=== PATIENT | male | born 1975 | race American Indian/Alaskan Native ===

== ENCOUNTER 2018-07-14 13:55 | Emergency (ER) | payer SELFPAY ==
[2018-07-14 14:10] VITALS: BP 137/79
--- NOTE | 2018-07-14 14:11 | Emergency Department Report ---
Chief Complaint: Back Pain/Injury Stated Complaint: LOWER BACK PAIN/DIZZINESS Time Seen by Provider: 07/14/18 14:09 - HPI History of Present Illness: This is a 43 y.o. male that presents with chills and headache for 4 days. PMH HIV. Patient states he has been off medication since May. - ROS Review of Systems: chills, headache, and acute on chronic back pain. - Exam Vital Signs: Vital Signs 07/14/18 14:08 Temperature 99.3 F Pulse Rate 82 Respiratory 18 Rate Blood Pressure 137/79 O2 Sat by Pulse 99 Oximetry MSE screening note: Focused history and physical exam performed. Due to findings the following was ordered: labs Fast track for further evaluation. ED Disposition for MSE Condition: Stable
[2018-07-14 14:56] LABS: Hematocrit 35.8 % (35.5-45.6); Hemoglobin 11.7 gm/dl (11.8-15.2); Mean Corpuscular HGB Conc 33 % (32-34); Mean Corpuscular Volume 79 fl (84-94); Platelet Count 263 K/mm3 (140-440); Red Blood Count 4.53 M/mm3 (3.65-5.03); Red Cell Distribution Width 13.9 % (13.2-15.2)
[2018-07-14 15:08] LABS: Alanine Aminotransferase 18 units/L (7-56); Albumin 3.8 g/dL (3.9-5); BUN/Creatinine Ratio 7; Blood Urea Nitrogen 6 mg/dL (9-20); Calcium 9.1 mg/dL (8.4-10.2); Hemolysis Index 12
[2018-07-14] MEDS ORDERED: TORADOL IV ONE (15:42)
[2018-07-14] MEDS ORDERED: NACL 0.9% 1000 ML 1,000 ML IV ONE (15:42)
[2018-07-14 16:00] LABS: Basophils % (Manual) 0 % (0.0-1.8); Eosinophils % (Manual) 0 % (0.0-4.3); RBC Morphology Normal; Total Cells Counted 100
[2018-07-14 16:31] LABS: Bilirubin,Urine NEG (Negative); Blood,Urine NEG (Negative); Color,Urine Yellow (Yellow); Mucus,Urine FEW /HPF; Protein,Urine <15 mg/dL mg/dL (Negative); Urobilinogen,Urine < 2.0 mg/dL (<2.0); WBC,Urine < 1.0 /HPF (0.0-6.0)
--- NOTE | 2018-07-14 16:41 | Emergency Department Report ---
ED Back Pain/Injury HPI - General Chief Complaint: Back Pain/Injury Stated Complaint: LOWER BACK PAIN/DIZZINESS Time Seen by Provider: 07/14/18 14:09 Source: patient Limitations: No Limitations - History of Present Illness Initial Comments: This is a 43-year-old male nontoxic, well nourished in appearance, no acute signs of distress presents to the ED with c/o of acute on chronic lower back pain and dizziness. Patient stated that the past 2 days he was moving and developed this pain. Patient states has history of sciatica nerve pain which is similar symptoms as today. Patient states that pain radiates through to his left lower extremity. Patient denies any trauma. Denies any bladder or bowel instability. Patient denies any urinary symptoms. Patient denies any sycnope. Denies any fever, chills, nausea, vomiting, headache, stiff neck, chest pain or shortness of breath. Patient denies any numbness or tingling. Denies any allergies. MD Complaint: back pain -: days(s) Similar Symptoms Previously: Yes Radiation: none Severity: mild Severity scale (0 -10): 3 Consistency: intermittent Improves With: immobilization, sitting upright Worsens With: movement, walking Context: while lifting, turning/twisting Associated Symptoms: denies other symptoms. denies: confusion, weakness, chest pain, numbness, difficulty walking, cough, difficulty urinating, diaphoresis, incontinence, fever/chills, constipation, headaches, abdominal pain, loss of appetite, malaise, nausea/vomiting, rash, seizure, shortness of breath, syncope - Related Data Previous Rx's Medication Instructions Recorded Last Taken Type Ibuprofen [Motrin] 800 mg PO Q8H #30 tablet 06/28/14 Unknown Rx methOCARBAMOL [Robaxin] 500 mg PO BID #30 tab 06/28/14 Unknown Rx traMADol [Ultram 50 MG tab] 50 mg PO Q6HR PRN #20 tablet 06/28/14 Unknown Rx Cyclobenzaprine [Flexeril] 10 mg PO QHS PRN #10 tablet 07/14/18 Unknown Rx Ibuprofen [Motrin] 600 mg PO Q8H PRN #20 tablet 07/14/18 Unknown Rx Allergies Allergy/AdvReac Type Severity Reaction Status Date / Time No Known Allergies Allergy Unverified 06/28/14 16:49 ED Review of Systems ROS: Stated complaint: LOWER BACK PAIN/DIZZINESS Other details as noted in HPI Constitutional: denies: chills, fever Eyes: denies: eye pain, eye discharge, vision change ENT: denies: ear pain, throat pain Respiratory: denies: cough, shortness of breath, wheezing Cardiovascular: denies: chest pain, palpitations Endocrine: no symptoms reported Gastrointestinal: denies: abdominal pain, nausea, vomiting, diarrhea Genitourinary: denies: urgency, dysuria Musculoskeletal: back pain. denies: joint swelling, arthralgia Skin: denies: rash, lesions Neurological: denies: headache, weakness, paresthesias Psychiatric: denies: anxiety, depression Hematological/Lymphatic: denies: easy bleeding, easy bruising ED Past Medical Hx - Past Medical History Previous Medical History?: Yes Additional medical history: HIV+ - Surgical History Past Surgical History?: No - Social History Smoking Status: Unknown if ever smoked Substance Use Type: None - Medications Home Medications: Home Medications Medication Instructions Recorded Confirmed Last Taken Type Ibuprofen [Motrin] 800 mg PO Q8H #30 tablet 06/28/14 Unknown Rx methOCARBAMOL [Robaxin] 500 mg PO BID #30 tab 06/28/14 Unknown Rx traMADol [Ultram 50 MG tab] 50 mg PO Q6HR PRN #20 tablet 06/28/14 Unknown Rx Cyclobenzaprine [Flexeril] 10 mg PO QHS PRN #10 tablet 07/14/18 Unknown Rx Ibuprofen [Motrin] 600 mg PO Q8H PRN #20 tablet 07/14/18 Unknown Rx ED Physical Exam - General Limitations: No Limitations General appearance: alert, in no apparent distress - Head Head exam: Present: atraumatic, normocephalic - Eye Eye exam: Present: normal appearance, PERRL, EOMI - Neck Neck exam: Present: normal inspection, full ROM. Absent: tenderness, meningismus, lymphadenopathy - Respiratory Respiratory exam: Present: normal lung sounds bilaterally. Absent: respiratory distress, wheezes, rales, rhonchi, stridor, chest wall tenderness, accessory muscle use, decreased breath sounds, prolonged expiratory - Cardiovascular Cardiovascular Exam: Present: regular rate, normal rhythm, normal heart sounds. Absent: bradycardia, tachycardia, irregular rhythm, systolic murmur, diastolic murmur, rubs, gallop - GI/Abdominal GI/Abdominal exam: Present: soft, normal bowel sounds. Absent: distended, tenderness, guarding, rebound, rigid, diminished bowel sounds - Rectal Rectal exam: Present: deferred - Extremities Exam Extremities exam: Present: normal inspection, full ROM - Back Exam Back exam: Present: normal inspection, full ROM, paraspinal tenderness (lumbar paraspinal). Absent: tenderness, CVA tenderness (R), CVA tenderness (L), muscle spasm, vertebral tenderness, rash noted - Expanded Back Exam Expanded Back exam: Absent: saddle anesthesia Back exam: Negative Straight Leg Raising: Left, Right - Neurological Exam Neurological exam: Present: alert, oriented X3, normal gait - Expanded Neurological Exam Expanded Patient oriented to: Present: person, place, time Cranial nerves: EOM's Intact: Normal, Gag Reflex: Normal, Facial Sensation: Normal Upper motor neuron: Pronator Drift: Normal, Sensory Extinction: Normal Sensory exam: Upper Extremity Light Touch: Normal, Upper Extremity Pin Prick: Normal, Upper Extremity Temperature: Normal, Lower Extremity Light Touch: Normal, Lower Extremity Pin Prick: Normal, Lower Extremity Temperature: Normal Motor strength exam: RUE: 5, LUE: 5, RLE: 5, LLE: 5 Best Eye Response (Alejandro): (4) open spontaneously Best Motor Response (Alejandro): (6) obeys commands Best Verbal Response (Alejandro): (5) oriented Alejandro Total: 15 - Psychiatric Psychiatric exam: Present: normal affect, normal mood - Skin Skin exam: Present: warm, dry, intact, normal color. Absent: rash ED Course Vital Signs 07/14/18 07/14/18 14:08 16:09 Temperature 99.3 F Pulse Rate 82 Respiratory 18 18 Rate Blood Pressure 137/79 O2 Sat by Pulse 99 Oximetry - Reevaluation(s) Reevaluation #1: 07/14/18 16:42 Patient is speaking in full sentences with no signs of distress noted. ED Medical Decision Making - Lab Data Result diagrams: 07/14/18 14:40 07/14/18 14:40 - Medical Decision Making This is a 43-year-old male that presents with low back strain and dizziness. Patient is stable was examined by me. There is no spinal tenderness. There is no cauda equina syndrome during examination. Labs and UA are unremarkable. No bladder or bowel instability. Patient received Toradol 30 mg IM with 1L normal saline in the ED which stated that his symptoms has resolved and subsided. Patient stated that dizziness has subsided. Patient is discharged with muscle relaxant and Motrin. Patient was instructed not to operate any machinery while taking muscle relaxant as they cause her drowsiness. Patient was referred to Follow-up with a primary care doctor in 3-5 days or if symptoms worsen and con tinue return to emergency room as soon as possible. At time of discharge, the patient does not seem toxic or ill in appearance. No acute signs of distress noted. Patient agrees to discharge treatment plan of care. No further questions noted by the patient. This chart is dictated with using [employer] Critical care attestation.: If time is entered above; I have spent that time in minutes in the direct care of this critically ill patient, excluding procedure time. ED Disposition Clinical Impression: Dizziness Low back strain Qualifiers: Encounter type: initial encounter Qualified Code(s): S39.012A - Strain of muscle, fascia and tendon of lower back, initial encounter Disposition: TO HOME OR SELFCARE Is pt being admited?: No Does the pt Need Aspirin: No Condition: Stable Instructions: Dizziness (ED), Low Back Strain (ED), Cyclobenzaprine (By mouth) Additional Instructions: Follow-up with your primary care doctor in 3-5 days or if symptoms worsen such as bladder or bowel stability, chest pain, short of breath, numbness or tingling sensation in extremities, headache, dizziness, visual changes, nausea vomiting, or abdominal pain, return back to emergency room as was possible. Take ibuprofen and Flexeril as prescribed. Do not operate heavy machinery while taking Flexeril due to sedation Prescriptions: Cyclobenzaprine [Flexeril] 10 mg PO QHS PRN #10 tablet PRN Reason: Muscle Spasm Ibuprofen [Motrin] 600 mg PO Q8H PRN #20 tablet PRN Reason: Pain Referrals: BRENNAN DIEHLMILFORD SQUARE MD GLENIS [Primary Care Provider] - 3-5 Days PRIMARY MD SRINIVAS [Referring] - 3-5 Days ANGY PEDRO MD [Staff Physician] - 3-5 Days [facility] [Outside] - 3-5 Days Forms: Work/School Release Form(ED)
== END 2018-07-14 17:04 | disposition home or self-care (01) ==
LOC: ED 13:55
DX: S39.012A Strain of muscle, fascia and tendon of lower back, initial encounter (principal); R42 Dizziness and giddiness; Z79.899 Other long term (current) drug therapy; X58.XXXA Exposure to other specified factors, initial encounter; Y93.89 Activity, other specified; Y92.89 Other specified places as the place of occurrence of the external cause; Y99.8 Other external cause status
CPT/HCPCS: 36415; 80053; 81001; 85007; 85025; 96361; 96374; 99283; J1885; J7030

== ENCOUNTER 2020-06-28 08:31 | Emergency (ER) | payer SELFPAY ==
--- NOTE | 2020-06-28 08:44 | Event Note ---
ED Screening Note ED Screening Note: 44-year-old -[place] male with past medical history of HIV presents emergency department complaining of left-sided chest pain radiating to the left arm associated with palpitation and numbness and tingling of an unknown etiology. This initial assessment/diagnostic orders/clinical plan/treatment(s) is/are subject to change based on patients health status, clinical progression and re- assessment by fellow clinical providers in the ED. Further treatment and workup at subsequent clinical providers discretion. Patient/guardian urged not to elope from the ED as their condition may be serious if not clinically assessed and managed. Initial orders include: Cardiovascular work-up evaluation chest x-ray
--- NOTE | 2020-06-28 09:07 | Emergency Department Report ---
ED General Adult HPI - General Chief complaint: Chest Pain Stated complaint: CHEST PAIN Time Seen by Provider: 06/28/20 09:06 Source: patient Mode of arrival: Ambulatory Limitations: No Limitations - History of Present Illness Initial comments: Patient is a 44-year-old male presents to emergency department for evaluation of diffuse chest discomfort associated with sensation of breathlessness and paresthesias to both hands occurring in episodes for the past 9 days. Patient notes the first time he was told he was having a panic attack and symptoms re solved with ingestion of wine and marijuana. Patient denies calf pain or swelling, patient is a smoker, denies history of hypercholesterolemia, denies hypertension, denies any history of heart disease. - Related Data Previous Rx's Medication Instructions Recorded Last Taken Type Ibuprofen [Motrin] 800 mg PO Q8H #30 tablet 06/28/14 Unknown Rx methOCARBAMOL [Robaxin] 500 mg PO BID #30 tab 06/28/14 Unknown Rx traMADoL [Ultram 50 MG tab] 50 mg PO Q6HR PRN #20 tablet 06/28/14 Unknown Rx Cyclobenzaprine [Flexeril] 10 mg PO QHS PRN #10 tablet 07/14/18 Unknown Rx Ibuprofen [Motrin] 600 mg PO Q8H PRN #20 tablet 07/14/18 Unknown Rx Allergies Allergy/AdvReac Type Severity Reaction Status Date / Time No Known Allergies Allergy Verified 06/28/20 08:31 ED Review of Systems ROS: Stated complaint: CHEST PAIN Other details as noted in HPI Comment: All other systems reviewed and negative ED Past Medical Hx - Past Medical History Previous Medical History?: No Additional medical history: HIV+ - Surgical History Past Surgical History?: No - Social History Smoking Status: Current Every Day Smoker Substance Use Type: Alcohol, Marijuana - Medications Home Medications: Home Medications Medication Instructions Recorded Confirmed Last Taken Type Ibuprofen [Motrin] 800 mg PO Q8H #30 tablet 06/28/14 Unknown Rx methOCARBAMOL [Robaxin] 500 mg PO BID #30 tab 06/28/14 Unknown Rx traMADoL [Ultram 50 MG tab] 50 mg PO Q6HR PRN #20 tablet 06/28/14 Unknown Rx Cyclobenzaprine [Flexeril] 10 mg PO QHS PRN #10 tablet 07/14/18 Unknown Rx Ibuprofen [Motrin] 600 mg PO Q8H PRN #20 tablet 07/14/18 Unknown Rx ED Physical Exam - General Limitations: No Limitations General appearance: alert, in no apparent distress - Head Head exam: Present: atraumatic, normocephalic - Eye Eye exam: Present: normal appearance - ENT ENT exam: Present: mucous membranes moist - Neck Neck exam: Present: normal inspection - Respiratory Respiratory exam: Present: normal lung sounds bilaterally. Absent: respiratory distress - Cardiovascular Cardiovascular Exam: Present: regular rate, normal rhythm - GI/Abdominal GI/Abdominal exam: Present: soft, normal bowel sounds - Rectal Rectal exam: Present: deferred - Extremities Exam Extremities exam: Present: normal inspection - Back Exam Back exam: Present: normal inspection - Neurological Exam Neurological exam: Present: alert, oriented X3 - Psychiatric Psychiatric exam: Present: normal affect, normal mood - Skin Skin exam: Present: warm, dry, intact, normal color. Absent: rash ED Course Vital Signs 06/28/20 06/28/20 08:32 09:54 Temperature 98.7 F Pulse Rate 80 66 Respiratory 20 16 Rate Blood Pressure 129/54 Blood Pressure 106/76 [Left] O2 Sat by Pulse 97 100 Oximetry - Reevaluation(s) Reevaluation #1: 06/28/20 10:03 Patient reevaluated and in no acute distress. Patient denies chest pain or dyspnea. Advised patient cardiac disease cannot be excluded in the emergency department and consequently follow-up as indicated. Patient given information for cardiology on-call to follow-up. ED Medical Decision Making - Lab Data Result diagrams: 06/28/20 09:03 06/28/20 09:03 Labs 06/28/20 06/28/20 06/28/20 09:03 09:03 09:03 WBC 5.6 RBC 4.64 Hgb 12.2 Hct 37.2 MCV 80 L MCH 26 L MCHC 33 RDW 14.1 Plt Count 260 Lymph % (Auto) 44.9 H [place] % (Auto) 8.1 H Eos % (Auto) 1.6 Baso % (Auto) 1.2 Lymph # (Auto) 2.5 [place] # (Auto) 0.5 Eos # (Auto) 0.1 Baso # (Auto) 0.1 Seg Neutrophils % 44.2 Seg Neutrophils # 2.5 PT 13.2 INR 1.01 Sodium 142 Potassium 4.2 Chloride 106.2 Carbon Dioxide 29 Anion Gap 11 BUN 9 Creatinine 1.0 Estimated GFR > 60 BUN/Creatinine Ratio 9 Glucose 99 Calcium 9.1 Total Bilirubin 0.40 AST 15 ALT 13 Alkaline Phosphatase 80 Troponin T < 0.010 Total Protein 7.1 Albumin 4.2 Albumin/Globulin Ratio 1.4 Lipase 22 Vital Signs 06/28/20 06/28/20 08:32 09:54 Temperature 98.7 F Pulse Rate 80 66 Respiratory 20 16 Rate Blood Pressure 129/54 Blood Pressure 106/76 [Left] O2 Sat by Pulse 97 100 Oximetry - EKG Data -: EKG Interpreted by Me (Sinus rhythm at 74, no ST-T changes, normal QRS) - Radiology Data Radiology results: report reviewed Chest x-ray negative per radiology Critical care attestation.: If time is entered above; I have spent that time in minutes in the direct care of this critically ill patient, excluding procedure time. ED Disposition Clinical Impression: Chest pain Disposition: DC-01 TO HOME OR SELFCARE Is pt being admited?: No Condition: Stable Instructions: Chest Pain (ED), Nonspecific Chest Pain, Adult Additional Instructions: Follow-up with primary care doctor or cardiology in 1 to 2 days for reevaluation. Please note cardiac disease cannot be excluded in the emergency department. Return to the emergency department for worsening symptoms. Referrals: MINGO DANIELS MD [Staff Physician] - 3-5 Days Heart Score - HEART Score History: Slightly suspicious EKG: Normal Age: < 45 Risk factors: 1-2 risk factors Troponin: < normal limit HEART Score: 1
--- NOTE | 2020-06-28 09:20 | XRay Report ---
CHEST 2 VIEWS INDICATION / CLINICAL INFORMATION: Chest Pain. COMPARISON: None available. FINDINGS: SUPPORT DEVICES: None. HEART / MEDIASTINUM: No significant abnormality. LUNGS / PLEURA: Clear lungs. No significant pleural effusion. No pneumothorax. ADDITIONAL FINDINGS: No significant additional findings. IMPRESSION: 1. No acute abnormality of the chest. Signer Name: Tima Collins MD Signed: 06/28/2020 9:16 AM Workstation Name: [id number]
[2020-06-28 09:41] LABS: Alanine Aminotransferase 13 units/L (7-56); Albumin 4.2 g/dL (3.9-5); BUN/Creatinine Ratio 9; Blood Urea Nitrogen 9 mg/dL (9-20); Calcium 9.1 mg/dL (8.4-10.2); Hemolysis Index 3
[2020-06-28 09:54] LABS: Basophils # (Auto) 0.1 K/mm3 (0.0-0.1); Basophils % (Auto) 1.2 % (0.0-1.8); Eosinophils # (Auto) 0.1 K/mm3 (0.0-0.4); Eosinophils % (Auto) 1.6 % (0.0-4.3); Hematocrit 37.2 % (35.5-45.6); Hemoglobin 12.2 gm/dl (11.8-15.2); Lymphocytes # (Auto) 2.5 K/mm3 (1.2-5.4); Lymphocytes % (Auto) 44.9 % (13.4-35.0); Mean Corpuscular HGB Conc 33 % (32-34); Mean Corpuscular Volume 80 fl (84-94); Monocytes # (Auto) 0.5 K/mm3 (0.0-0.8); Monocytes % (Auto) 8.1 % (0.0-7.3); Platelet Count 260 K/mm3 (140-440); Red Blood Count 4.64 M/mm3 (3.65-5.03); Red Cell Distribution Width 14.1 % (13.2-15.2)
[2020-06-28 09:55] VITALS: BP 106/76
[2020-06-28 10:04] LABS: INR 1.01 (0.87-1.13)
== END 2020-06-28 10:49 | disposition home or self-care (01) ==
LOC: ED 08:31
DX: R07.89 Other chest pain (principal); F17.200 Nicotine dependence, unspecified, uncomplicated; F12.10 Cannabis abuse, uncomplicated; Z79.899 Other long term (current) drug therapy
CPT/HCPCS: 36415; 71046; 80053; 83690; 84484; 85025; 85610; 93005

== ENCOUNTER 2020-09-26 12:08 | Emergency (ER) | payer SELFPAY ==
[2020-09-26] MEDS ORDERED: IBUPROFEN 800 MG TAB PO STA (13:56)
--- NOTE | 2020-09-26 13:57 | Emergency Department Report ---
ED General Adult HPI - General Stated complaint: RIGHT ANKLE INJURY Time Seen by Provider: 09/26/20 13:54 - History of Present Illness Initial comments: 45-year-old -[place] male patient with history of HIV (compliant with antiretrovirals) presents with complaints of right ankle pain and swelling starting yesterday. Patient states that he was running yesterday, he twisted his ankle. He denies any numbness/tingling or difficulty moving his ankle. He rates his pain as 8/10 in severity. He did state he tried icing the ankle but no improvement in the swelling. He has not tried any OTC medication. -: Sudden - Related Data Previous Rx's Medication Instructions Recorded Last Taken Type Ibuprofen [Motrin] 800 mg PO Q8H #30 tablet 06/28/14 Unknown Rx methOCARBAMOL [Robaxin] 500 mg PO BID #30 tab 06/28/14 Unknown Rx traMADoL [Ultram 50 MG tab] 50 mg PO Q6HR PRN #20 tablet 06/28/14 Unknown Rx Cyclobenzaprine [Flexeril] 10 mg PO QHS PRN #10 tablet 07/14/18 Unknown Rx Ibuprofen [Motrin] 600 mg PO Q8H PRN #20 tablet 07/14/18 Unknown Rx Naproxen 500 mg PO BID PRN #20 tablet 09/26/20 Unknown Rx Allergies Allergy/AdvReac Type Severity Reaction Status Date / Time No Known Allergies Allergy Verified 09/26/20 13:57 ED Review of Systems ROS: Stated complaint: RIGHT ANKLE INJURY Other details as noted in HPI Musculoskeletal: joint swelling, arthralgia Skin: denies: change in color Neurological: abnormal gait. denies: numbness, paresthesias ED Past Medical Hx - Past Medical History Additional medical history: HIV+ - Social History Smoking Status: Current Every Day Smoker Substance Use Type: Alcohol, Marijuana - Medications Home Medications: Home Medications Medication Instructions Recorded Confirmed Last Taken Type Ibuprofen [Motrin] 800 mg PO Q8H #30 tablet 06/28/14 Unknown Rx methOCARBAMOL [Robaxin] 500 mg PO BID #30 tab 06/28/14 Unknown Rx traMADoL [Ultram 50 MG tab] 50 mg PO Q6HR PRN #20 tablet 06/28/14 Unknown Rx Cyclobenzaprine [Flexeril] 10 mg PO QHS PRN #10 tablet 07/14/18 Unknown Rx Ibuprofen [Motrin] 600 mg PO Q8H PRN #20 tablet 07/14/18 Unknown Rx Naproxen 500 mg PO BID PRN #20 tablet 09/26/20 Unknown Rx ED Physical Exam - General General appearance: alert, in no apparent distress - Head Head exam: Present: atraumatic, normocephalic - Eye Eye exam: Present: normal appearance - Respiratory Respiratory exam: Absent: respiratory distress - Cardiovascular Cardiovascular Exam: Present: regular rate - Expanded Lower Extremity Exam Right Foot/Toe exam: Present: full ROM, tenderness (Lateral), swelling. Absent: ecchymosis, deformity Neuro vascular tendon exam: Absent: pulse deficit, motor deficit, sensory deficit, pallor - Back Exam Back exam: Present: full ROM - Neurological Exam Neurological exam: Present: alert, oriented X3. Absent: normal gait (Antalgic, ambulating with a cane) - Psychiatric Psychiatric exam: Present: normal affect, normal mood - Skin Skin exam: Present: warm, dry, intact, normal color. Absent: rash ED Course Vital Signs 09/26/20 13:54 Temperature 98.1 F Pulse Rate 75 Respiratory 16 Rate Blood Pressure 110/88 O2 Sat by Pulse 100 Oximetry ED Medical Decision Making - Radiology Data Radiology results: report reviewed RIGHT ANKLE 3 VIEWS INDICATION / CLINICAL INFORMATION: Pain/swelling over the lateral cuboid/talus. COMPARISON: None available. FINDINGS: No significant skeletal abnormality - Medical Decision Making 45-year-old -[place] male patient with history of HIV (compliant with antiretrovirals) presents with complaints of right ankle pain and swelling starting yesterday. Patient states that he was running yesterday, he twisted his ankle. He denies any numbness/tingling or difficulty moving his ankle. He rates his pain as 8/10 in severity. He did state he tried icing the ankle but no improvement in the swelling. He has not tried any OTC medication. X-rays negative for any acute bony abnormalities. Will treat for ankle sprain with rice method and crutches. Recommend follow-up with orthopedics as needed. Strict return precautions discussed in detail patient verbalized understanding. Critical care attestation.: If time is entered above; I have spent that time in minutes in the direct care of this critically ill patient, excluding procedure time. ED Disposition Clinical Impression: Injury of right ankle Qualifiers: Encounter type: initial encounter Qualified Code(s): S99.911A - Unspecified injury of right ankle, initial encounter Disposition: TO HOME OR SELFCARE Is pt being admited?: No Condition: Stable Instructions: Ankle Sprain Prescriptions: Naproxen 500 mg PO BID PRN #20 tablet PRN Reason: pain Referrals: PRIMARY CAREMD [Primary Care Provider] - 3-5 Days KATIE BRISCOE MD [Staff Physician] - as needed
[2020-09-26 13:58] VITALS: BP 110/88
--- NOTE | 2020-09-26 14:15 | XRay Report ---
RIGHT ANKLE 3 VIEWS INDICATION / CLINICAL INFORMATION: Pain/swelling over the lateral cuboid/talus. COMPARISON: None available. FINDINGS: No significant skeletal abnormality Signer Name: Casey Kaur MD FACFlori Signed: 09/26/2020 2:11 PM Workstation Name: [id number]
== END 2020-09-26 15:13 | disposition home or self-care (01) ==
LOC: ED 12:08
DX: S99.911A Unspecified injury of right ankle, initial encounter (principal); F17.200 Nicotine dependence, unspecified, uncomplicated; F12.90 Cannabis use, unspecified, uncomplicated; Z21 Asymptomatic human immunodeficiency virus [HIV] infection status; Z72.89 Other problems related to lifestyle; Z79.899 Other long term (current) drug therapy; X50.1XXA Overexertion from prolonged static or awkward postures, initial encounter; Y93.89 Activity, other specified; Y92.89 Other specified places as the place of occurrence of the external cause; Y99.8 Other external cause status
CPT/HCPCS: 99283

== ENCOUNTER 2020-10-17 10:15 | Emergency (ER) | payer SELFPAY ==
--- NOTE | 2020-10-17 11:37 | Event Note ---
ED Screening Note Date of service: 10/17/20 Time: 11:33 ED Screening Note: 45-year-old male patient presents to the emergency department with multiple complaints: 1. ABDOMINAL PAIN Patient presents to the emergency department with complaints of right lower quadrant abdominal pain, nausea, vomiting, constipation, and testicular pain progressively worsening for 4 weeks. No preceding fall, trauma, or injury. No known sick contacts. No current steroid or antibiotic use. 2. SUICIDAL IDEATION Patient presents to the emergency department with complaints of ongoing suicidal ideation. Patient is grieving the loss of a family member. States he has telephone numbers for suicidal hotlines but has not spoken to anyone. He has contemplated a plan but has not actually attempted suicide. General: Awake, appropriately interactive, no acute distress. Neck: Supple. Full range of motion intact. Cardiovascular: Normal peripheral perfusion. Pulmonary: No respiratory distress. Patient is speaking normally without use of accessory muscles. Abdomen: Diffuse lower abdominal tenderness. 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 Right testicular tenderness. Skin: No apparent rashes or lesions. Neurological: No facial asymmetry. Speech is clear. Follows commands. Patient is alert and oriented. Musculoskeletal: Moves all four extremities spontaneously with normal range of motion. Psych: Cooperative. Appropriate mood and affect. I have greeted and performed a focused rapid initial assessment of this patient. A comprehensive ED assessment and evaluation of the patient, analysis of all test results, and completion of the medical decision-making process will be conducted by additional ED providers. This initial assessment/diagnostic orders/clinical plan/treatment(s) is/are subject to change based on patients health status, clinical progression and re-assessment. Further treatment and workup at subsequent clinical provider's discretion. Patient/guardian urged not to elope from the ED as their condition may be serious if not clinically assessed and managed.
[2020-10-17 12:29] LABS: Bilirubin,Urine NEG (Negative); Blood,Urine NEG (Negative); Color,Urine Yellow (Yellow); Protein,Urine <15 mg/dL mg/dL (Negative); Urobilinogen,Urine < 2.0 mg/dL (<2.0); WBC,Urine < 1.0 /HPF (0.0-6.0)
[2020-10-17 12:36] LABS: Amphetamine Screen,Urine Negative; Benzodiazepines Screen,Urine Negative; Cannabinoid Screen,Urine Negative; Cocaine Screen,Urine Negative; Methadone Screen,Urine Negative; Opiate Screen,Urine Negative
[2020-10-17 12:41] LABS: Basophils # (Auto) 0.1 K/mm3 (0.0-0.1); Basophils % (Auto) 0.8 % (0.0-1.8); Eosinophils % (Auto) 0.3 % (0.0-4.3); Hematocrit 42.2 % (35.5-45.6); Hemoglobin 13.6 gm/dl (11.8-15.2); Lymphocytes # (Auto) 2.6 K/mm3 (1.2-5.4); Lymphocytes % (Auto) 38.3 % (13.4-35.0); Mean Corpuscular HGB Conc 32 % (32-34); Mean Corpuscular Volume 79 fl (84-94); Monocytes # (Auto) 0.5 K/mm3 (0.0-0.8); Monocytes % (Auto) 8.1 % (0.0-7.3); Platelet Count 312 K/mm3 (140-440); Red Blood Count 5.31 M/mm3 (3.65-5.03); Red Cell Distribution Width 14.4 % (13.2-15.2)
--- NOTE | 2020-10-17 12:51 | Emergency Department Report ---
ED Abdominal Pain HPI - General Chief Complaint: Abdominal Pain Stated Complaint: ABD PAIN PUI?: No Time Seen by Provider: 10/17/20 12:02 Source: patient Mode of arrival: Ambulatory Limitations: No Limitations - History of Present Illness Initial Comments: CC: abdominal pain, depression HPI: This is a 45-year-old male with history of depression and HIV who presents with abdominal pain, testicular pain and depression. Patient has had abdominal pain for 1 year. He has had associated bloating constipation diarrhea nausea. Pain is mild to moderate. Intermittent. Worse with certain types of food especially rice and bread. Patient noticed 1 week ago that he has had mild testicular tenderness. He denies dysuria or penile discharge. He has had unprotected sex within the last month. Patient had depression and suicidal thoughts. He recently lost his job. He is still mourning the loss of his grandmother who August 2019. He was unable to attend the in [place]. When he has suicidal thoughts he calls his friends and his nurse administrator for support. He denies any plan to harm himself. He is followed at the [facility]. He takes psychiatric medications intermittently. He feels that the medications wo rsen his GI symptoms. Patient recently lost his stepfather. His stepfather recently . He plans to attend the this week with the financial support of his friends. Complaint: abdominal pain -: Gradual, year(s) (1 year) Location: diffuse Migration to: no migration Severity: moderate Severity scale (0 -10): 7 Quality: fullness Consistency: intermittent Improves With: other (Enema) Worsens With: eating Associated Symptoms: nausea, vomiting, constipation - Related Data Previous Rx's Medication Instructions Recorded Last Taken Type Ibuprofen [Motrin] 800 mg PO Q8H #30 tablet 06/28/14 Unknown Rx methOCARBAMOL [Robaxin] 500 mg PO BID #30 tab 06/28/14 Unknown Rx traMADoL [Ultram 50 MG tab] 50 mg PO Q6HR PRN #20 tablet 06/28/14 Unknown Rx Cyclobenzaprine [Flexeril] 10 mg PO QHS PRN #10 tablet 07/14/18 Unknown Rx Ibuprofen [Motrin] 600 mg PO Q8H PRN #20 tablet 07/14/18 Unknown Rx Naproxen 500 mg PO BID PRN #20 tablet 09/26/20 Unknown Rx Sulfamethoxazole/Trimethoprim 1 each PO BID 7 Days #14 tablet 10/17/20 Unknown Rx [Bactrim DS TAB] cephALEXin [Keflex] 500 mg PO Q8HR 7 Days #21 cap 10/17/20 Unknown Rx Allergies Allergy/AdvReac Type Severity Reaction Status Date / Time No Known Allergies Allergy Verified 09/26/20 13:57 ED Review of Systems ROS: Stated complaint: ABD PAIN Other details as noted in HPI Comment: All other systems reviewed and negative Constitutional: denies: fever, malaise Respiratory: denies: cough, shortness of breath Gastrointestinal: abdominal pain, nausea, vomiting, diarrhea, constipation Psychiatric: depression, suicidal thoughts ED Past Medical Hx - Past Medical History Previous Medical History?: Yes Additional medical history: HIV+, depression - Surgical History Past Surgical History?: No - Family History Family history: hypertension - Social History Smoking Status: Current Every Day Smoker Substance Use Type: None - Medications Home Medications: Home Medications Medication Instructions Recorded Confirmed Last Taken Type Ibuprofen [Motrin] 800 mg PO Q8H #30 tablet 06/28/14 Unknown Rx methOCARBAMOL [Robaxin] 500 mg PO BID #30 tab 06/28/14 Unknown Rx traMADoL [Ultram 50 MG tab] 50 mg PO Q6HR PRN #20 tablet 06/28/14 Unknown Rx Cyclobenzaprine [Flexeril] 10 mg PO QHS PRN #10 tablet 07/14/18 Unknown Rx Ibuprofen [Motrin] 600 mg PO Q8H PRN #20 tablet 07/14/18 Unknown Rx Naproxen 500 mg PO BID PRN #20 tablet 09/26/20 Unknown Rx Sulfamethoxazole/Trimethoprim 1 each PO BID 7 Days #14 tablet 10/17/20 Unknown Rx [Bactrim DS TAB] cephALEXin [Keflex] 500 mg PO Q8HR 7 Days #21 cap 10/17/20 Unknown Rx ED Physical Exam - General Limitations: No Limitations General appearance: alert, in no apparent distress, other (Calm pleasant talkative insightful articulate) - Head Head exam: Present: atraumatic, normocephalic - Eye Eye exam: Present: normal appearance - ENT ENT exam: Present: mucous membranes moist - Neck Neck exam: Present: normal inspection, full ROM - Respiratory Respiratory exam: Present: normal lung sounds bilaterally. Absent: respiratory distress, wheezes, rales, rhonchi - Cardiovascular Cardiovascular Exam: Present: regular rate, normal rhythm, normal heart sounds. Absent: systolic murmur, diastolic murmur, rubs, gallop - GI/Abdominal GI/Abdominal exam: Present: soft, normal bowel sounds. Absent: distended, tenderness, guarding, rebound - Rectal Rectal exam: Present: deferred - exam: Present: other (Exam deferred due to patient's discretion) - Extremities Exam Extremities exam: Present: normal inspection - Back Exam Back exam: Present: normal inspection - Neurological Exam Neurological exam: Present: alert, oriented X3 - Psychiatric Psychiatric exam: Present: normal affect, normal mood - Skin Skin exam: Present: warm, dry, intact, normal color. Absent: rash ED Course Vital Signs 10/17/20 10:56 Temperature 98.2 F Pulse Rate 88 Respiratory 18 Rate Blood Pressure 131/77 O2 Sat by Pulse 99 Oximetry ED Medical Decision Making - Lab Data Result diagrams: 10/17/20 12:24 10/17/20 12:24 - Radiology Data Patient Name: ANNETTE GAINES Gender: Male Date of : 1975 Referring Provider: GUTIERREZ CHOW Organization: [facility] Accession Number: [id number] Requested Date: October 17, 2020 11:33 Report Status: Final Requested Procedure: 1 Procedure Description: US testicular doppler comp Modality: US Findings Reporting MD: Ernesto Luque Dictation Time: October 17, 2020 11:49 Screw Machine Setter: Not available Feather Shaper Date: ULTRASOUND SCROTUM INDICATION / CLINICAL INFORMATION: right testicular pain. COMPARISON: None available. FINDINGS -- RIGHT TESTIS: Size = 3.4 x 1.4 x 2.4 cm. - Appearance: No significant abnormality. - Cyst or Mass: Small 2 mm intratesticular cyst. - Color Doppler Flow: No significant abnormality. EPIDIDYMIS: No significant abnormality. HYDROCELE: Small hydrocele. VARICOCELE: None demonstrated. FINDINGS -- LEFT TESTIS: Size = 3.1 x 1.6 x 2.9 cm. - Appearance: No significant abnormality. - Cyst or Mass: None. - Color Doppler Flow: No significant abnormality. EPIDIDYMIS: No significant abnormality. HYDROCELE: Small hydrocele. VARICOCELE: None demonstrated. ADDITIONAL FINDINGS: Soft tissue swelling and increased vascularity in the scrotum. No drainable fluid collections. IMPRESSION: 1. Soft tissue swelling and edema noted in the scrotum with increased vascularity. Correlate clinically for possible cellulitis. No drainable fluid collection. 2. Small bilateral hydroceles. 3. No testicular torsion. Signer Name: Ernesto Luque MD Signed: 10/17/2020 11:49 AM Workstation Name: [id number] - Medical Decision Making 1. Abdominal pain with vomiting diarrhea constipation food intolerance. My clinical impression irritable bowel syndrome. I recommended pescatarian diet. 2. Suicidal ideation: Patient has history depression. He is followed at [facility]. He denies plan to harm himself. He has appropriate coping mechanisms.. He has plenty of social support. He plans to follow-up with [facility] once he returns from [place] 3. Scrotal cellulitis: Bactrim Keflex prescribed I have reviewed labs obtained. CBC chemistry urinalysis all within normal limits. Nontoxic and unremarkable. Serum toxicology and UDS obtained for suicidal screening. Critical care attestation.: If time is entered above; I have spent that time in minutes in the direct care of this critically ill patient, excluding procedure time. ED Disposition Clinical Impression: Irritable bowel syndrome, Depression, Cellulitis of scrotum Disposition: - TO HOME OR SELFCARE Is pt being admited?: No Does the pt Need Aspirin: No Condition: Stable Instructions: Scrotal Swelling, Major Depressive Disorder, Adult, Dozz-he-Sfly Prescriptions: Sulfamethoxazole/Trimethoprim [Bactrim DS TAB] 1 each PO BID 7 Days #14 tablet cephALEXin [Keflex] 500 mg PO Q8HR 7 Days #21 cap Referrals: [facility] [Outside] - 3-5 Days NEREIDA DENIS MD [Staff Physician] - 3-5 Days
--- NOTE | 2020-10-17 12:54 | Ultrasound Report ---
ULTRASOUND SCROTUM INDICATION / CLINICAL INFORMATION: right testicular pain. COMPARISON: None available. FINDINGS -- RIGHT TESTIS: Size = 3.4 x 1.4 x 2.4 cm. - Appearance: No significant abnormality. - Cyst or Mass: Small 2 mm intratesticular cyst. - Color Doppler Flow: No significant abnormality. EPIDIDYMIS: No significant abnormality. HYDROCELE: Small hydrocele. VARICOCELE: None demonstrated. FINDINGS -- LEFT TESTIS: Size = 3.1 x 1.6 x 2.9 cm. - Appearance: No significant abnormality. - Cyst or Mass: None. - Color Doppler Flow: No significant abnormality. EPIDIDYMIS: No significant abnormality. HYDROCELE: Small hydrocele. VARICOCELE: None demonstrated. ADDITIONAL FINDINGS: Soft tissue swelling and increased vascularity in the scrotum. No drainable flui d collections. IMPRESSION: 1. Soft tissue swelling and edema noted in the scrotum with increased vascularity. Correlate clinical ly for possible cellulitis. No drainable fluid collection. 2. Small bilateral hydroceles. 3. No testicular torsion. Signer Name: Ernesto Luque MD Signed: 10/17/2020 12:49 PM Workstation Name: [id number]
[2020-10-17 13:08] LABS: Alanine Aminotransferase 15 units/L (7-56); Albumin 4.7 g/dL (3.9-5)
[2020-10-17 13:09] LABS: Alanine Aminotransferase 15 units/L (7-56); Albumin 4.7 g/dL (3.9-5); BUN/Creatinine Ratio 7; Blood Urea Nitrogen 7 mg/dL (9-20); Calcium 10.1 mg/dL (8.4-10.2); Hemolysis Index 7
[2020-10-17 13:11] LABS: Bilirubin,Direct < 0.2 mg/dL (0-0.2)
[2020-10-17 14:08] VITALS: BP 120/73
== END 2020-10-17 14:00 | disposition home or self-care (01) ==
LOC: ED 10:15
DX: K58.1 Irritable bowel syndrome with constipation (principal); F32.9 Major depressive disorder, single episode, unspecified; N49.2 Inflammatory disorders of scrotum; I10 Essential (primary) hypertension; F17.200 Nicotine dependence, unspecified, uncomplicated; Z79.899 Other long term (current) drug therapy
CPT/HCPCS: 36415; 80053; 80076; 80307; 80320; 81001; 83690; 83735; 85025; 93975; 99284; G0480

== ENCOUNTER 2020-10-22 09:43 | Emergency (ER) | payer SELFPAY ==
[2020-10-22 10:42] VITALS: BP 113/62
[2020-10-22] MEDS ORDERED: ONDANSETRON 4 MG ODT TAB PO ONE (10:52)
[2020-10-22] MEDS ORDERED: PANTOPRAZOLE 40 MG TAB PO ONE (10:52)
--- NOTE | 2020-10-22 10:57 | Emergency Department Report ---
ED Abdominal Pain HPI - General Chief Complaint: Abdominal Pain Stated Complaint: ABD PAIN, VOMITING PUI?: No Time Seen by Provider: 10/22/20 10:42 Source: patient Mode of arrival: Ambulatory Limitations: No Limitations - History of Present Illness Initial Comments: Chief complaint: Vomiting poor appetite Is a 45-year-old male with history of HIV on ART, depression who presents with vomiting poor appetite for several days. I evaluated this gentleman for similar symptoms 5 days ago. He admits that he has had intermittent symptoms for over a year. He has been able to tolerate water decrease injury. He feels fullness in epigastric region after eating. He has self treated constipation at home with enema and magnesium citrate. Today he had appointment with his infectious disease doctor near the hospital. He was encouraged to obtain a referral to GI specialist. MD Complaint: abdominal pain -: Gradual, month(s) (1 year) Location: epigastric Radiation: none Severity: moderate Consistency: intermittent Improves With: nothing Worsens With: nothing Associated Symptoms: nausea, vomiting, diarrhea, constipation - Related Data Previous Rx's Medication Instructions Recorded Last Taken Type Ibuprofen [Motrin] 800 mg PO Q8H #30 tablet 06/28/14 Unknown Rx methOCARBAMOL [Robaxin] 500 mg PO BID #30 tab 06/28/14 Unknown Rx traMADoL [Ultram 50 MG tab] 50 mg PO Q6HR PRN #20 tablet 06/28/14 Unknown Rx Cyclobenzaprine [Flexeril] 10 mg PO QHS PRN #10 tablet 07/14/18 Unknown Rx Ibuprofen [Motrin] 600 mg PO Q8H PRN #20 tablet 07/14/18 Unknown Rx Naproxen 500 mg PO BID PRN #20 tablet 09/26/20 Unknown Rx Sulfamethoxazole/Trimethoprim 1 each PO BID 7 Days #14 tablet 10/17/20 Unknown Rx [Bactrim DS TAB] cephALEXin [Keflex] 500 mg PO Q8HR 7 Days #21 cap 10/17/20 Unknown Rx Dicyclomine [Bentyl] 20 mg PO QID 30 Days #120 tablet 10/22/20 Unknown Rx Omeprazole 40 mg PO DAILY 30 Days #30 10/22/20 Unknown Rx capsule. Promethazine [Phenergan] 25 mg PO Q6HR PRN #10 tab 10/22/20 Unknown Rx Allergies Allergy/AdvReac Type Severity Reaction Status Date / Time No Known Allergies Allergy Verified 09/26/20 13:57 ED Review of Systems ROS: Stated complaint: ABD PAIN, VOMITING Other details as noted in HPI Comment: All other systems reviewed and negative Constitutional: denies: fever, malaise Respiratory: denies: cough, shortness of breath Gastrointestinal: abdominal pain, nausea, vomiting, diarrhea, constipation Skin: denies: rash, lesions ED Past Medical Hx - Past Medical History Previous Medical History?: Yes Hx HIV: Yes Additional medical history: HIV+, depression - Surgical History Past Surgical History?: No - Social History Smoking Status: Current Every Day Smoker - Medications Home Medications: Home Medications Medication Instructions Recorded Confirmed Last Taken Type Ibuprofen [Motrin] 800 mg PO Q8H #30 tablet 06/28/14 Unknown Rx methOCARBAMOL [Robaxin] 500 mg PO BID #30 tab 06/28/14 Unknown Rx traMADoL [Ultram 50 MG tab] 50 mg PO Q6HR PRN #20 tablet 06/28/14 Unknown Rx Cyclobenzaprine [Flexeril] 10 mg PO QHS PRN #10 tablet 07/14/18 Unknown Rx Ibuprofen [Motrin] 600 mg PO Q8H PRN #20 tablet 07/14/18 Unknown Rx Naproxen 500 mg PO BID PRN #20 tablet 09/26/20 Unknown Rx Sulfamethoxazole/Trimethoprim 1 each PO BID 7 Days #14 tablet 10/17/20 Unknown Rx [Bactrim DS TAB] cephALEXin [Keflex] 500 mg PO Q8HR 7 Days #21 cap 10/17/20 Unknown Rx Dicyclomine [Bentyl] 20 mg PO QID 30 Days #120 tablet 10/22/20 Unknown Rx Omeprazole 40 mg PO DAILY 30 Days #30 10/22/20 Unknown Rx capsule. Promethazine [Phenergan] 25 mg PO Q6HR PRN #10 tab 10/22/20 Unknown Rx ED Physical Exam - General Limitations: No Limitations General appearance: alert, in no apparent distress - Head Head exam: Present: atraumatic, normocephalic - Eye Eye exam: Present: normal appearance - ENT ENT exam: Present: mucous membranes moist - Neck Neck exam: Present: normal inspection, full ROM - Respiratory Respiratory exam: Present: normal lung sounds bilaterally. Absent: respiratory distress, wheezes, rales, rhonchi, stridor - Cardiovascular Cardiovascular Exam: Present: regular rate, normal rhythm, normal heart sounds. Absent: systolic murmur, diastolic murmur, rubs, gallop - GI/Abdominal GI/Abdominal exam: Present: soft, normal bowel sounds. Absent: distended, tenderness, guarding, rebound - Rectal Rectal exam: Present: deferred - Extremities Exam Extremities exam: Present: normal inspection - Neurological Exam Neurological exam: Present: alert, oriented X3 - Psychiatric Psychiatric exam: Present: normal affect, depressed. Absent: homicidal ideation, suicidal ideation - Skin Skin exam: Present: warm, dry, intact, normal color. Absent: rash ED Course Vital Signs 10/22/20 10:41 Temperature 99.7 F H Pulse Rate 90 Respiratory 16 Rate Blood Pressure 113/62 [Left] O2 Sat by Pulse 99 Oximetry ED Medical Decision Making - Radiology Data Radiology results: report reviewed Patient Name: ANNETTE GAINES Gender: Male Date of : 1975 Referring Provider: PATY PERALTA Organization: [facility] Accession Number: [id number] Requested Date: October 22, 2020 10:57 Report Status: Final Requested Procedure: 1 Procedure Description: CT abdomen pelvis wo con Modality: CT Findings Reporting MD: Didier Stoddard Dictation Time: October 22, 2020 10:55 Warehouse Foreman: Not available Inspector Paper Products Date: CT abdomen pelvis wo con INDICATION: Vomiting diarrhea HIV. COMPARISON: None TECHNIQUE: Abdominal and pelvic CT exam performed. All CT scans at this location are performed using CT dose reduction for ALARA by means of automated exposure control. FINDINGS: CT ABDOMEN and PELVIS: Lung Bases: No significant abnormality. Liver: No significant abnormality. Biliary: No significant abnormality. Spleen: No significant abnormality. Pancreas: No significant abnormality. Adrenals: No significant abnormality. Kidneys: No significant abnormality. Lymphatics: No lymphadenopathy. Vasculature: Minimal aortic atherosclerosis. No aneurysm. Bowel: No significant abnormality. Normal appendix. Pelvis: No significant abnormality. Osseous Structures: No aggressive osseous lesion. Additional Findings: None IMPRESSION: 1. No significant abnormality of the abdomen or pelvis. Signer Name: Didier Stoddard MD Signed: 10/22/2020 10:55 AM Workstation Name: [id number] - Medical Decision Making Clinical impression irritable bowel syndrome, peptic ulcer disease. Prescribed omeprazole and Bentyl. Referred to outpatient medicine physician. Critical care attestation.: If time is entered above; I have spent that time in minutes in the direct care of this critically ill patient, excluding procedure time. ED Disposition Clinical Impression: Irritable bowel syndrome, Peptic ulcer disease Disposition: TO HOME OR SELFCARE Is pt being admited?: No Does the pt Need Aspirin: No Condition: Stable Instructions: Peptic Ulcer, [id number], Diet for Irritable Bowel Syndrome Prescriptions: Dicyclomine [Bentyl] 20 mg PO QID 30 Days #120 tablet Omeprazole 40 mg PO DAILY 30 Days #30 capsule. Promethazine [Phenergan] 25 mg PO Q6HR PRN #10 tab PRN Reason: Nausea Referrals: NEREIDA DENIS MD [Staff Physician] - 3-5 Days
--- NOTE | 2020-10-22 12:00 | Cat Scan Report ---
CT abdomen pelvis wo con INDICATION: Vomiting diarrhea HIV. COMPARISON: None TECHNIQUE: Abdominal and pelvic CT exam performed. All CT scans at this location are performed using CT dose reduction for ALARA by means of automated exposure control. FINDINGS: CT ABDOMEN and PELVIS: Lung Bases: No significant abnormality. Liver: No significant abnormality. Biliary: No significant abnormality. Spleen: No significant abnormality. Pancreas: No significant abnormality. Adrenals: No significant abnormality. Kidneys: No significant abnormality. Lymphatics: No lymphadenopathy. Vasculature: Minimal aortic atherosclerosis. No aneurysm. Bowel: No significant abnormality. Normal appendix. Pelvis: No significant abnormality. Osseous Structures: No aggressive osseous lesion. Additional Findings: None IMPRESSION: 1. No significant abnormality of the abdomen or pelvis. Signer Name: Didier Stoddard MD Signed: 10/22/2020 11:55 AM Workstation Name: [id number]
== END 2020-10-22 12:23 | disposition home or self-care (01) ==
LOC: ED 09:43
DX: K58.9 Irritable bowel syndrome, unspecified (principal); K27.9 Peptic ulcer, site unspecified, unspecified as acute or chronic, without hemorrhage or perforation; F32.9 Major depressive disorder, single episode, unspecified; F17.200 Nicotine dependence, unspecified, uncomplicated; Z79.899 Other long term (current) drug therapy
CPT/HCPCS: 74176; 99283; Q0162